=== PATIENT | male | born 1975 | race American Indian/Alaskan Native ===

== ENCOUNTER 2017-01-24 20:50 | Emergency (ER) | payer SELFPAY ==
--- NOTE | 2017-01-24 23:21 | Emergency Department Report ---
ED Back Pain/Injury HPI - General Chief Complaint: Back Pain/Injury Stated Complaint: BACK PAIN, LIGHT HEADED Time Seen by Provider: 01/24/17 23:00 Source: patient Limitations: No Limitations - History of Present Illness Initial Comments: 41-year-old male past medical history anxiety presents with complaint of mild left-sided back discomfort. Denies any direct trauma states that he was lifting weights earlier this week which may have incited his back pain. Denies any chest pain, shortness of breath no nausea no vomiting, no fever no chills. Denies any dysuria. Patient is awake alert and oriented 3 not in acute distress. MD Complaint: back pain Onset/Timin -: days(s) Place: home Radiation: none Severity: mild Quality: aching Consistency: intermittent Context: turning/twisting Associated Symptoms: denies other symptoms - Related Data Allergies Allergy/AdvReac Type Severity Reaction Status Date / Time Penicillins Allergy Swelling Verified 05/20/14 18:30 ED Review of Systems ROS: Stated complaint: BACK PAIN, LIGHT HEADED Other details as noted in HPI ED Past Medical Hx - Past Medical History Previous Medical History?: Yes Hx Psychiatric Treatment: Yes (anxiety) Additional medical history: Vertigo and chronic sinus problems - Social History Smoking Status: Unknown if ever smoked Substance Use Type: None ED Physical Exam - General Limitations: No Limitations General appearance: alert, in no apparent distress - Head Head exam: Present: atraumatic, normocephalic - Eye Eye exam: Present: normal appearance, PERRL, EOMI - ENT ENT exam: Present: mucous membranes moist - Neck Neck exam: Present: normal inspection, full ROM - Respiratory Respiratory exam: Present: normal lung sounds bilaterally. Absent: respiratory distress - Cardiovascular Cardiovascular Exam: Present: regular rate, normal rhythm. Absent: systolic murmur, diastolic murmur, rubs, gallop - GI/Abdominal GI/Abdominal exam: Present: soft, normal bowel sounds - Rectal Rectal exam: Present: deferred - Extremities Exam Extremities exam: Present: normal inspection - Back Exam Back exam: Present: normal inspection, full ROM - Expanded Back Exam Expanded 1 - Mild discomfort and muscle tension on palpation of the scapular region - Neurological Exam Neurological exam: Present: alert, oriented X3 - Psychiatric Psychiatric exam: Present: normal affect, normal mood - Skin Skin exam: Present: warm, dry, intact, normal color. Absent: rash ED Course Vital Signs 01/24/17 01/24/17 21:10 23:56 Temperature 98.3 F Pulse Rate 82 79 Respiratory 18 17 Rate Blood Pressure 132/90 Blood Pressure 146/90 [Left] O2 Sat by Pulse 98 99 Oximetry ED Medical Decision Making - Medical Decision Making A/P: Musculoskeletal back pain 1-patient states that he has GERD and is currently on triple therapy does not want NSAIDs will take [id number] Tylenol on his own 2-pain is reproducible on clinical palpation of trapezius region minimal, patient states he will avoid lifting heavy weights for now until discomfort goes away Critical care attestation.: If time is entered above; I have spent that time in minutes in the direct care of this critically ill patient, excluding procedure time. ED Disposition Clinical Impression: Back pain Qualifiers: Back pain location: low back pain Chronicity: acute Back pain laterality: left Sciatica presence: without sciatica Qualified Code(s): M54.5 - Low back pain Disposition: DISCHARGED TO HOME OR SELFCARE Is pt being admited?: No Does the pt Need Aspirin: No Condition: Stable Instructions: Musculoskeletal Pain (ED), Back Pain (ED) Referrals: PRIMARY CARE, [Primary Care Provider] - 3-5 Days Time of Disposition: 23:16
[2017-01-24 23:57] VITALS: BP 146/90
== END 2017-01-24 23:00 | disposition home or self-care (01) ==
LOC: ED 20:50
DX: M54.5 Low back pain (principal); F41.9 Anxiety disorder, unspecified; Z88.0 Allergy status to penicillin
CPT/HCPCS: 99282

== ENCOUNTER 2018-06-05 00:35 | Emergency (ER) | payer SELFPAY | END 2018-06-05 00:36 | disposition left against medical advice (07) | LOC: ED 00:35 | DX: R07.89 Other chest pain (principal); Z53.21 Procedure and treatment not carried out due to patient leaving prior to being seen by health care provider | CPT/HCPCS: 93005; 93010 ==